=== PATIENT | female | born 1985 | race Caucasian/White ===

== ENCOUNTER 2016-11-22 11:42 | Emergency (ER) | payer BC ==
[2016-11-22 12:05] VITALS: BP 120/70; PULSE 78; TEMP 98.3; BMI 21.6
[2016-11-22] MEDS ORDERED: SODIUM CHLORIDE 1,000 ML IV STA (12:56)
--- NOTE | 2016-11-22 12:59 | PDOC ---
History of Present Illness - General Chief Complaint: Migraine Headache Stated Complaint: HEADACHE Time Seen by Provider: 11/22/16 12:20 History Source: Patient Exam Limitations: No Limitations - History of Present Illness Initial Comments: 11/22/16 12:56 31 yr female with headache for 3 weeks on and off. Pt denies fever or chills, pt also c/o feeling dehydrated and having seasonal allergies. Pt has no medical history or allergies to meds. LMP 3 weeks ago no control . non smoker denies drugs alcohol. Past History - Past Medical History Allergies/Adverse Reactions: Allergies Allergy/AdvReac Type Severity Reaction Status Date / Time No Known Allergies Allergy Verified 11/22/16 12:01 Home Medications: Ambulatory Orders Ketorolac Tromethamine [Toradol] 10 mg PO Q6H PRN #28 tablet 11/22/16 Other medical history: MIGRANES not dx - Psycho/Social/Smoking Cessation Hx Suicidal Ideation: No Smoking History: Never smoked Neuro Specific PMHX - Complaint Specific PMHX Glaucoma: No Herniated Disk: No Laminectomy: No Migraine: No Multiple Sclerosis: No Neuropathy: No TIA: No Review of Systems - Review of Systems Able to Perform ROS?: Yes Is the patient limited Yoruba proficient: No Constitutional: No: Symptoms Reported HEENTM: Yes: Nose Congestion Respiratory: No: Cough Cardiac (ROS): No: Symptoms Reported : No: Symptoms Reported Musculoskeletal: No: Symptoms Reported Integumentary: No: Symptoms Reported Neurological: Yes: Symptoms reported, Headache *Physical Exam - Vital Signs Last Vital Signs Temp Pulse Resp BP Pulse Ox 98.3 F 78 17 120/70 98 11/22/16 12:01 11/22/16 12:01 11/22/16 12:01 11/22/16 12:01 11/22/16 12:01 - Physical Exam General Appearance: Yes: Nourished, Appropriately Dressed HEENT: positive: EOMI, MAAME, Normal ENT Inspection, TMs Normal, Pharynx Normal, Nasal Congestion Neck: positive: Supple, Tender lateral (right muscle tender to palpation). negative: Tender Respiratory/Chest: positive: Lungs Clear, Normal Breath Sounds Cardiovascular: positive: Regular Rhythm, Regular Rate Musculoskeletal: positive: Normal Inspection Extremity: positive: Normal Capillary Refill, Normal Inspection, Normal Range of Motion Integumentary: positive: Normal Color, Dry, Warm Neurologic: positive: Fully Oriented, Alert, Normal Mood/Affect, Normal Response , Motor Strength 5/5, Finger to Nose (intact). negative: Sensory Deficit ED Treatment Course - LABORATORY CBC & Chemistry Diagram: 11/22/16 13:10 11/22/16 13:10 Medical Decision Making - Medical Decision Making 11/22/16 12:58 cc: headache on and off 3 weeks, feeling dehydrated, allergy symptoms will check labs, lyme IVF x 1 liter toradol if negative refer to neurology 11/22/16 12:59 11/22/16 13:58 11/22/16 14:36 pt feels better after IVF wants to go home labs are WNL will refer to neurology and ENT for further evaluation *DC/Admit/Observation/Transfer Diagnosis at time of Disposition: Headache Qualifiers: Headache type: unspecified Headache chronicity pattern: acute headache Intractability: not intractable Qualified Code(s): R51 - Headache - Discharge Dispostion Disposition: HOME Condition at time of disposition: Improved - Prescriptions Prescriptions: Ketorolac Tromethamine [Toradol] 10 mg PO Q6H PRN #28 tablet PRN Reason: Headache - Referrals Referrals: Dougie Begum MD [Staff Physician] - Greg Carrion MD [Staff Physician] - - Patient Instructions Additional Instructions: follow with the neurologist for follow up also follow with ENT allergy if any allergy symptoms, sinus symptoms re-occur you should take an over the counter non droswy antihistamine such as claritin, adarsh or zyrtec to help with any allergy symptoms take toradol as directed for headache avoid reading, texting straining your eyes if you have headache Return to ER for any worsening symptoms
[2016-11-22 13:26] LABS: BASOPHIL 0.6 % (0-2.0); EOSINOPHIL 1.1 % (0-4.5); MCH 28.1 pg (25.7-33.7); MCHC 33.4 g/dl (32.0-36.0); MEAN PLT VOLUME 8.2 fl (7.5-11.1); NEUTROPHILS 70.1 % (42.8-82.8); PLATELET COUNT 172 K/MM3 (134-434); RDW 14.2 % (11.6-15.6); WHITE BLOOD COUNT 10.4 K/mm3 (4.0-10.0)
[2016-11-22 13:53] LABS: ALBUMIN 4.3 g/dl (3.4-5.0); ALK PHOS 57 U/L (45-117); ANION GAP 10 (8-16); BILIRUBIN,TOTAL 0.4 mg/dL (0.2-1.0); CALCIUM 9.3 mg/dL (8.5-10.1); CO2 26 mmol/L (21-32); COCKROFT - GAULT 95.7185; CREATININE 0.8 mg/dL (0.55-1.02); GLUCOSE,RANDOM 87 mg/dL (74-106); SGOT/AST 18 U/L (15-37); SGPT/ALT 25 U/L (12-78); TOT PROT 8.3 g/dl (6.4-8.2)
[2016-11-22] MEDS ORDERED: KETOROLAC TROMETHAMINE 30 MG/1 ML VIAL IVPUSH STA (13:57)
[2016-11-22] MEDS ORDERED: KETOROLAC TROMETHAMINE 30 MG/1 ML VIAL ONE (14:01)
== END 2016-11-22 14:50 | disposition home or self-care (01) ==
LOC: JERFT 11:42
PROC: 3E0337Z Introduction of Electrolytic and Water Balance Substance into Peripheral Vein, Percutaneous Approach (ICD-10-PCS; principal; 2016-11-22)
PROC: 3E0233Z Introduction of Anti-inflammatory into Muscle, Percutaneous Approach (ICD-10-PCS; 2016-11-22)
DX: R51 Headache (principal); J30.2 Other seasonal allergic rhinitis
CPT/HCPCS: 36415; 80053; 84703; 85025; 86618; 99281-25

== ENCOUNTER 2017-11-10 08:23 | Emergency (ER) | payer BC ==
[2017-11-10 08:28] VITALS: BP 128/82; PULSE 81; TEMP 98; BMI 24.7
--- NOTE | 2017-11-10 08:54 | PDOC ---
History of Present Illness - General Chief Complaint: Back Pain Stated Complaint: BACK PAIN Time Seen by Provider: 11/10/17 08:52 History Source: Patient Exam Limitations: No Limitations Past History - Travel Traveled outside of the country in the last 30 days: No Close contact w/someone who was outside of country & ill: No - Past Medical History Allergies/Adverse Reactions: Allergies Allergy/AdvReac Type Severity Reaction Status Date / Time No Known Allergies Allergy Verified 11/10/17 08:28 Home Medications: Ambulatory Orders Methylprednisolone [Medrol Dose Juan] 4 mg PO ASDIR #21 tablet 11/10/17 COPD: No Other medical history: Migraines, Pituitary tumor - Suicide/Smoking/Psychosocial Hx Smoking History: Never smoked Have you smoked in the past 12 months: No Information on smoking cessation initiated: No Hx Alcohol Use: No Drug/Substance Use Hx: No Substance Use Type: None Review of Systems - Review of Systems Able to Perform ROS?: Yes Comments:: 11/10/17 08:54 CONSTITUTIONAL: Absent: fever, chills, diaphoresis, generalized weakness, malaise, loss of appetite HEENT: Absent: rhinorrhea, nasal congestion, throat pain, throat swelling, difficulty swallowing, mouth swelling, ear pain, eye pain, visual Changes CARDIOVASCULAR: Absent: chest pain, loss of consciousness, palpitations, irregular heart rate, peripheral edema RESPIRATORY: Absent: cough, shortness of breath, dyspnea with exertion, orthopnea, wheezing, stridor, hemoptysis GASTROINTESTINAL: Absent: abdominal pain, abdominal distension, nausea, vomiting, diarrhea, constipation, melena, hematochezia GENITOURINARY: Absent: dysuria, frequency, urgency, hesitancy, hematuria, flank pain, genital pain MUSCULOSKELETAL: Absent: myalgia, arthralgia, joint swelling SKIN: Absent: rash, itching, pallor HEMATOLOGIC/IMMUNOLOGIC: Absent: easy bleeding, easy bruising, lymphadenopathy, frequent infections ENDOCRINE: Absent: unexplained weight gain, unexplained weight loss, heat intolerance, cold intolerance NEUROLOGIC: Absent: headache, focal weakness or paresthesias, dizziness, unsteady gait, seizure, mental status changes, bladder or bowel incontinence PSYCHIATRIC: Absent: anxiety, depression, suicidal or homicidal ideation, hallucinations. Is the patient limited Yi proficient: No *Physical Exam - Vital Signs Last Vital Signs Temp Pulse Resp BP Pulse Ox 98 F 81 18 128/82 98 11/10/17 08:25 11/10/17 08:25 11/10/17 08:25 11/10/17 08:25 11/10/17 08:25 - Physical Exam Comments: 11/10/17 08:54 GENERAL: Well developed, well nourished. Awake and alert. No acute distress. HEENT: Normocephalic, atraumatic. PERRLA, EOMI. No conjunctival pallor. Sclera are non- icteric. Moist mucous membranes. Oropharynx is clear. NECK: Supple. Full ROM. No JVD. Carotid pulses 2+ and symmetric, without bruits. No thyromegaly. No lymphadenopathy. CARDIOVASCULAR: Regular rate and rhythm. No murmurs, rubs, or gallops. Distal pulses are 2+ and symmetric. PULMONARY: No evidence of respiratory distress. Lungs clear to auscultation bilaterally. No wheezing, rales or rhonchi. ABDOMINAL: Soft. Non-tender. Non-distended. No rebound or guarding. No organomegaly. Normoactive bowel sounds. MUSCULOSKELETAL Normal range of motion at all joints. No bony deformities or tenderness. No CVA tenderness. EXTREMITIES: No cyanosis. No clubbing. No edema. No calf tenderness. SKIN: Warm and dry. Normal capillary refill. No rashes. No jaundice. NEUROLOGICAL: Alert, awake, appropriate. Cranial nerves 2-12 intact. No deficits to light touch and temperature in face, upper extremities and lower extremities. No motor deficits in the in face, upper extremities and lower extremities. Normoreflexic in the upper and lower extremities. Normal speech. Toes are down- going bilaterally. Gait is normal without ataxia. PSYCHIATRIC: Cooperative. Good eye contact. Appropriate mood and affect. *DC/Admit/Observation/Transfer Diagnosis at time of Disposition: Upper back pain on left side - Discharge Dispostion Disposition: HOME Condition at time of disposition: Stable Admit: No - Referrals - Patient Instructions Printed Discharge Instructions: DI for Thoracic Back Pain Additional Instructions: You have upper back pain due to a muscle spasm. Please take the steroids as directed. Then, please take ibuprofen 800 mg 3 times a day not to exceed 3000 mg a day. You may use warm compresses, or creams on your back to help with your symptoms. Use gentle stretching exercises and core strengthening exercises once your pain has subsided to help prevent future back pain. Please follow-up with your primary care doctor. If your symptoms do not resolve in 3-5 days, follow- up with orthopedics. A referral has been provided for you. Return to the emergency department if you have worsening back pain, bladder or bowel incontinence, numbness and tingling in her legs, changes in the way you walk, arm pain, or any new or worsening symptoms. - Post Discharge Activity Forms/Work/School Notes: Back to Work
[2017-11-10] MEDS ORDERED: KETOROLAC TROMETHAMINE 60 MG/2 ML VIAL ONE (09:19)
[2017-11-10] MEDS ORDERED: KETOROLAC TROMETHAMINE 60 MG/2 ML VIAL IM ONE (09:19)
== END 2017-11-10 09:26 | disposition home or self-care (01) ==
LOC: JERFT 08:23
PROC: 3E0233Z Introduction of Anti-inflammatory into Muscle, Percutaneous Approach (ICD-10-PCS; principal; 2017-11-10)
DX: M62.830 Muscle spasm of back (principal)
CPT/HCPCS: 99281-25

== ENCOUNTER 2017-12-17 10:15 | Emergency (ER) | payer BC, OTHER ==
[2017-12-17 10:24] VITALS: BMI 26.6
--- NOTE | 2017-12-17 10:32 | PDOC ---
History of Present Illness - General Chief Complaint: Nausea/Vomiting Stated Complaint: NAUSEA/VOMITING (6 WKS ) Time Seen by Provider: 12/17/17 10:32 - History of Present Illness Initial Comments: 12/17/17 10:39 Ms. Ward is a 32 yo female at 6 weeks gestation (confirmed IUP) w/ no significant pmh who presents for evaluation of nausea/vomiting/weakness for several days. She reports she has been unable to keep anything down today and presents for evaluation. The patient denies chest pain, shortness of breath, headache and dizziness. Denies fever, chills, diarrhea and constipation. Denies dysuria, frequency, urgency and hematuria. Allergies: NKDA RET[facility] PRICING COORDINATOR: Dr. Luciano Past History - Past Medical History Allergies/Adverse Reactions: Allergies Allergy/AdvReac Type Severity Reaction Status Date / Time No Known Allergies Allergy Verified 12/17/17 10:20 Home Medications: Ambulatory Orders Nitrofurantoin Monohyd/M-Cryst [Macrobid -] 100 mg PO BID #10 capsule 12/17/17 Ondansetron [Zofran Odt -] 4 mg SL BID #14 od.tablet 12/17/17 No122/Iron/Folic Acid [ Multi Tablet] 1 each PO DAILY 12/17/17 COPD: No Other medical history: PITUITARY TUMOR, SCIATICA PAIN - Immunization History Immunization Up to Date: Yes - Suicide/Smoking/Psychosocial Hx Smoking History: Never smoked Have you smoked in the past 12 months: No Hx Alcohol Use: No Drug/Substance Use Hx: No Substance Use Type: None Review of Systems - Review of Systems Comments:: 12/17/17 10:46 GENERAL/CONSTITUTIONAL: No fever or chills. No weakness. HEAD, EYES, EARS, NOSE AND THROAT: No change in vision. No ear pain or discharge. No sore throat. CARDIOVASCULAR: No chest pain or shortness of breath RESPIRATORY: No cough, wheezing, or hemoptysis. GASTROINTESTINAL: +N/V as described. No diarrhea or constipation. GENITOURINARY: No dysuria, frequency, or change in urination. MUSCULOSKELETAL: No joint or muscle swelling or pain. No neck or back pain. SKIN: No rash NEUROLOGIC: No headache, vertigo, loss of consciousness, or change in strength/ sensation. ENDOCRINE: No increased thirst. No abnormal weight change HEMATOLOGIC/LYMPHATIC: No anemia, easy bleeding, or history of blood clots. ALLERGIC/IMMUNOLOGIC: No hives or skin allergy. *Physical Exam - Vital Signs Last Vital Signs Temp Pulse Resp BP Pulse Ox 98.6 F 72 18 120/66 98 12/17/17 10:21 12/17/17 10:21 12/17/17 10:21 12/17/17 10:21 12/17/17 10:21 - Physical Exam Comments: 12/17/17 10:46 GENERAL: +Patient appears weak. Otherwise awake, alert, and fully oriented, in no acute distress HEAD: No signs of trauma, normocephalic, atraumatic EYES: PERRLA, EOMI, sclera anicteric, conjunctiva clear ENT: Auricles normal inspection, hearing grossly normal, nares patent, oropharynx clear without exudates. Moist mucosa NECK: Normal ROM, supple, no lymphadenopathy, JVD, or masses LUNGS: No distress, speaks full sentences, clear to auscultation bilaterally HEART: Regular rate and rhythm, normal S1 and S2, no murmurs, rubs or gallops, peripheral pulses normal and equal bilaterally. ABDOMEN: Soft, nontender, normoactive bowel sounds. No guarding, no rebound. No masses EXTREMITIES: Normal inspection, Normal range of motion, no edema. No clubbing or cyanosis. NEUROLOGICAL: Cranial nerves II through XII grossly intact. Normal speech, normal gait, no focal sensorimotor deficits SKIN: Warm, Dry, normal turgor, no rashes or lesions noted. 12/17/17 10:46 ED Treatment Course - LABORATORY CBC & Chemistry Diagram: 12/17/17 10:52 12/17/17 10:52 Medical Decision Making - Medical Decision Making 12/17/17 10:47 Ms. Ward is a 32 yo female w/ no significant pmh who presents w/ symptoms concerning for hyperemesis gravidarum. Labs sent for evaluation of acute process , will provide symptomatic relief with zofran/fluids. 12/17/17 13:35 Transvaginal US revealed 6w 4d IUP. Likely ruptured left ovarian corpus luteum cyst noted. Also free fluid noted in right adnexa. Patient noted to have mild UTI as below. Macrobid given for treatment of asymptomatic UTI in . Patient now able to tolerate PO successfully. Patient will follow-up with OB/ [facility] on Tuesday for further evaluation. Laboratory Results - last 24 hr 12/17/17 12/17/17 12/17/17 10:52 10:52 11:26 WBC 8.4 RBC 4.49 Hgb 12.8 Hct 37.7 MCV 84.0 MCH 28.5 MCHC 33.9 RDW 14.0 Plt Count 186 MPV 7.6 Neutrophils % 72.1 D Lymphocytes % 19.3 D Monocytes % 6.4 Eosinophils % 1.5 Basophils % 0.7 Nucleated RBC % 0 Sodium 137 Potassium 4.3 Chloride 103 Carbon Dioxide 26 Anion Gap 8 BUN 8 Creatinine 0.8 Creat Clearance w eGFR > 60 Random Glucose 82 Calcium 8.5 Total Bilirubin 0.4 D AST 15 ALT 16 Alkaline Phosphatase 50 Total Protein 7.5 Albumin 3.5 Beta HCG, Quant 40831.2 Urine Color Straw Urine Appearance Clear Urine pH 7.0 Ur Specific Val[place] 1.009 Urine Protein Negative Urine Glucose (UA) Negative Urine Ketones Negative Urine Blood Negative Urine Nitrite Negative Urine Bilirubin Negative Urine Urobilinogen Negative Ur Leukocyte Esterase 2+ H Urine WBC (Auto) 1 Urine RBC (Auto) 1 Ur Epithelial Cells Rare *DC/Admit/Observation/Transfer Diagnosis at time of Disposition: Nausea and vomiting during - Discharge Dispostion Disposition: HOME - Prescriptions Prescriptions: Nitrofurantoin Monohyd/M-Cryst [Macrobid -] 100 mg PO BID #10 capsule Ondansetron [Zofran Odt -] 4 mg SL BID #14 od.tablet - Referrals Referrals: Jf Castro MD [Primary Care Provider] - - Patient Instructions Printed Discharge Instructions: DI for Hyperemesis Gravidarum Additional Instructions: Please return to ER if any increased nausea, vomiting, pain, fever, chills, or other concerning symptoms. Follow-up with RET[facility] PRICING COORDINATOR as discussed on Tuesday for further evaluation. Take all medications as described. - Post Discharge Activity
[2017-12-17] MEDS ORDERED: SODIUM CHLORIDE 1,000 ML IV STA (10:42)
[2017-12-17] MEDS ORDERED: ONDANSETRON 4 MG/2 ML VIAL IVPUSH ONE ×2 (10:42→10:46)
[2017-12-17] MEDS ORDERED: ONDANSETRON 4 MG/2 ML VIAL ONE (10:44)
--- NOTE | 2017-12-17 10:47 | PDOC ---
Attending Attestation - HPI HPI: 12/17/17 11:18 The patient is a 32 year old female who is 6 weeks with a significant PMH of migraines, pituitary tumor, and sciatica who presents to the emergency department with nausea and vomiting beginning within the past 1.5 weeks. The patient states she has been persistently vomiting since 5AM this morning and has had multiple episodes of vomiting and intermittent headache since about 12/05/17. The patient notes she has a follow up appointment with Dr. Luciano this upcoming Tuesday. The patient reports taking Tylenol today for her migraines. The patient denies any vaginal bleeding or discharge, She denies spotting or cramping. She denies chest pain or shortness of breath, She denies fevers or chills. Allergies: NKA PCP: Dr. Jf Castro - Physicial Exam PE: 12/17/17 11:18 Vitals: Triage Vital signs reviewed General Appearance: no acute distress, well nourished well developed, Neck: Supple;No Nuchal rigidity Cardiac: Regular rate and rhythm, no murmurs, no rubs, no gallops, Lungs: Clear to auscultation bilateral, good air movement bilaterally, Abdomen: Soft, nondistended, normal bowel sounds, nontender to palpation Extremities: Full range of motion to all extremities, no cyanosis, clubbing, or edema Skin: Warm and dry, no rashes or lesions, no petechiae Neuro: AOX3; Cranial Nerves 2-12 grossly intact, Strength intact to all extremities, Sensation intact to all extremities Psych: normal mood, normal affect - Medical Decision Making 12/17/17 11:30 The patient is a 32 year old female who is 6 weeks with a significant PMH of migraines, pituitary tumor, and sciatica who presents to the emergency department with nausea and vomiting beginning within the past 1.5 weeks. The patient states she has been persistently vomiting since 5AM this morning and has had multiple episodes of vomiting and intermittent headache since about 12/05/17. The patient notes she has a follow up appointment with Dr. Luciano this upcoming Tuesday. The patient reports taking Tylenol today for her migraines. The patient denies any vaginal bleeding or discharge, She denies spotting or cramping. She denies chest pain or shortness of breath, She denies fevers or chills. Allergies: NKA PCP: Dr. Jf Castro <Remy Borges - Last Filed: 12/17/17 12:22> - Resident Resident Name: Bob Yoon - ED Attending Attestation I have performed the following: I have examined & evaluated the patient, The case was reviewed & discussed with the resident, I agree w/resident's findings & plan, Exceptions are as noted - Medical Decision Making History examination consistent with hyperemesis gravidarum. Status post Reglan IV fluids and Zofran patient feels much better now feeling better. 1 WBC on UA. We'll start on Macrobid we'll follow culture tomorrow if negative will discontinue Patient was follow-up with her [facility] this week Findings, need follow-up and strict return instructions discussed patient. <Peter Mae - Last Filed: 12/17/17 18:20>
[2017-12-17 11:04] LABS: BASO % 0.7 % (0-2.0); EOS % 1.5 % (0-4.5); HEMATOCRIT 37.7 % (32.4-45.2); HEMOGLOBIN 12.8 GM/dL (10.7-15.3); LYMPH % 19.3 % (8-40); MCH 28.5 pg (25.7-33.7); MCHC 33.9 g/dl (32.0-36.0); MEAN PLT VOLUME 7.6 fl (7.5-11.1); MONO % 6.4 % (3.8-10.2); NEUT % 72.1 % (42.8-82.8); PLATELET COUNT 186 K/MM3 (134-434); RBC 4.49 M/mm3 (3.60-5.2); WHITE BLOOD COUNT 8.4 K/mm3 (4.0-10.0)
[2017-12-17] MEDS ORDERED: METOCLOPRAMIDE HCL INJECTION 10 MG/2 ML VIAL IVPB ONE (11:12)
[2017-12-17] MEDS ORDERED: SODIUM CHLORIDE 0.9% 1000 ML INFUS.BAG IV ONE (11:13)
[2017-12-17] MEDS ORDERED: METOCLOPRAMIDE HCL INJECTION 10 MG/2 ML VIAL ONE (11:17)
[2017-12-17 11:36] LABS: ALBUMIN 3.5 g/dl (3.4-5.0); ANION GAP 8 (8-16); BILIRUBIN,TOTAL 0.4 mg/dL (0.2-1.0); BLOOD UREA NITROGEN 8 mg/dL (7-18); CALCIUM 8.5 mg/dL (8.5-10.1); CHLORIDE 103 mmol/L (98-107); CO2 26 mmol/L (21-32); CREATININE 0.8 mg/dL (0.55-1.02); GLUCOSE,RANDOM 82 mg/dL (74-106); POTASSIUM 4.3 mmol/L (3.5-5.1); SGOT/AST 15 U/L (15-37); SGPT/ALT 16 U/L (12-78); SODIUM 137 mmol/L (136-145); TOT PROT 7.5 g/dl (6.4-8.2)
[2017-12-17 11:47] LABS: URINE APPEARANCE CLEAR; URINE BILIRUBIN NEGATIVE (<2.0 mg/dL); URINE COLOR STRAW; URINE GLUCOSE (UA) NEGATIVE (NEGATIVE); URINE KETONE NEGATIVE (NEGATIVE); URINE NITRITE NEGATIVE (NEGATIVE); URINE PROTEIN NEGATIVE (NEGATIVE); URINE UROBILINOGEN NEGATIVE mg/dL (0.2-1.0)
[2017-12-17 11:51] LABS: ALK PHOS 50 U/L (45-117)
[2017-12-17 12:02] LABS: URINE LEUK ESTERASE 2+ (NEGATIVE)
[2017-12-17 12:13] LABS: EPI CELLS RARE /HPF (FEW)
[2017-12-17 13:54] VITALS: BP 105/60; PULSE 71; TEMP 98.7
== END 2017-12-17 14:15 | disposition home or self-care (01) ==
LOC: JER 10:15
PROC: 3E033GC Introduction of Other Therapeutic Substance into Peripheral Vein, Percutaneous Approach (ICD-10-PCS; principal; 2017-12-17)
PROC: 3E033GC Introduction of Other Therapeutic Substance into Peripheral Vein, Percutaneous Approach (ICD-10-PCS; 2017-12-17)
PROC: 3E033GC Introduction of Other Therapeutic Substance into Peripheral Vein, Percutaneous Approach (ICD-10-PCS; 2017-12-17)
DX: O26.891 Other specified pregnancy related conditions, first trimester (principal); O21.0 Mild hyperemesis gravidarum; O23.31 Infections of other parts of urinary tract in pregnancy, first trimester; O34.81 Maternal care for other abnormalities of pelvic organs, first trimester; N83.292 Other ovarian cyst, left side; Z3A.01 Less than 8 weeks gestation of pregnancy
CPT/HCPCS: 76830-TC; 80053; 81003; 81015; 84702; 85025; 87086; 99282-25; J7030

== ENCOUNTER 2017-12-30 05:57 | Emergency (ER) | payer BC, OTHER ==
[2017-12-30 06:53] VITALS: BMI 25.0
[2017-12-30] MEDS ORDERED: SODIUM CHLORIDE 0.9% 500 ML INFUS.BAG IV ONE (07:12)
--- NOTE | 2017-12-30 07:17 | PDOC ---
Attending Attestation - ED Attending Attestation I have performed the following: I have examined & evaluated the patient, The case was reviewed & discussed with the resident, I agree w/resident's findings & plan, Exceptions are as noted - HPI HPI: 12/30/17 07:50 The patient is a 32 year old female with a significant past medical history of pituitary tumor, diet-controlled diabetes, migraines, and sciatica who presents to the emergency department for evaluation of emesis today. The patient reports multiple episodes of nausea with associated NBNB emesis since yesterday. The patient states this is her second issue regarding nausea and emesis during this (currently 8 weeks). She reports being seen during 5.5 weeks of her for similar symptoms. The patient reports associated symptoms of mild abdominal cramps (typical of her ), generalized weakness, and dyspnea on exertion. She reports only having a small amount almonds and juice yesterday secondary to her nausea. The patient reports she is taking medication (unsure of name) prescribed by her COLD ROLLER (Dr. Luciano). The patient denies chest pain, shortness of breath, headache, and dizziness. Denies fevers, chills, diarrhea, and constipation. Allergies: NKDA Social history: No reported cigarette, alcohol, or drug use. COLD ROLLER: Dr. Luciano <Vinayak Booker - Last Filed: 12/30/17 07:49> - Resident Resident Name: Saige Merino - ED Attending Attestation I have performed the following: I have examined & evaluated the patient, The case was reviewed & discussed with the resident, I agree w/resident's findings & plan, Exceptions are as noted - Physicial Exam PE: GENERAL: Awake, alert, and fully oriented, in no acute distress HEAD: No signs of trauma EYES: PERRLA, EOMI, sclera anicteric, conjunctiva clear ENT: Auricles normal inspection, hearing grossly normal, nares patent, oropharynx clear without exudates. Dry mucosa NECK: Normal ROM, supple, no lymphadenopathy, JVD, or masses LUNGS: Breath sounds equal, clear to auscultation bilaterally. No wheezes, and no crackles HEART: Regular rate and rhythm, normal S1 and S2, no murmurs, rubs or gallops ABDOMEN: Soft, mild suprapubic tenderness, normoactive bowel sounds. No guarding, no rebound. No masses EXTREMITIES: Normal range of motion, no edema. No clubbing or cyanosis. No cords, erythema, or tenderness NEUROLOGICAL: Cranial nerves II through XII grossly intact. Normal speech, normal gait SKIN: Warm, Dry, normal turgor, no rashes or lesions noted. - Medical Decision Making Pt with nausea and vomiting, currently 8 WGA. +Minimal suprapubic tenderness. Will obtain labs, UA, and ultrasound. <Jesenia Toribio - Last Filed: 12/30/17 08:49> Attestations - Attestations Documentation prepared by Vinayak Booker, acting as medical assistant secretary for Jesenia Toribio MD. <Vinayak Booker - Last Filed: 12/30/17 07:49>
[2017-12-30] MEDS ORDERED: METOCLOPRAMIDE HCL INJECTION 10 MG/2 ML VIAL IVPUSH ONE (07:20)
[2017-12-30] MEDS ORDERED: METOCLOPRAMIDE HCL INJECTION 10 MG/2 ML VIAL ONE (07:36)
--- NOTE | 2017-12-30 07:42 | PDOC ---
History of Present Illness - General Chief Complaint: Nausea/Vomiting Stated Complaint: VOMITING,8 WKS Time Seen by Provider: 12/30/17 06:57 History Source: Patient Exam Limitations: No Limitations - History of Present Illness Initial Comments: This is a 32 YO (one live vaginal delivery, currently 6 wks 4 days by LMP but ~ 8 wks by US, follows with Dr. Luciano with last appointment 12/08/17) with h/o diet-controlled GDM prior , anemia complicating prior without transfusion, pituitary tumor dx one year ago, migraines, chronic back pain with sciatica, and corticosteroid injections for this back pain, who p/w nausea and many episodes of NBNB vomiting for the past two days similar to her prior symptoms which have been diagnosed as hyperemesis gravidarum. She has been unable to keep down most foods or liquids. She was seen here in the ED in mid-October for this n/v and was found to be at that time by [facility]. She also had a UTI at that time and was tx with Macrobid. She has been taking an antiemetic at home as prescribed by Dr. Rivera without relief. She has had mild lower abdominal cramping unchanged from her weeks-long baseline this , as well as unchanged baseline SALGUERO this . She denies fever, chills, diarrhea, constipation, new abdominal pain, new back pain, vaginal bleeding/discharge, dysuria, urinary frequency or abnormal colors/smells. Past History - Past Medical History Allergies/Adverse Reactions: Allergies Allergy/AdvReac Type Severity Reaction Status Date / Time No Known Allergies Allergy Verified 12/30/17 06:52 Home Medications: Ambulatory Orders Nitrofurantoin Monohyd/M-Cryst [Macrobid -] 100 mg PO BID #10 capsule 12/17/17 Ondansetron [Zofran Odt -] 4 mg SL BID #14 od.tablet 12/17/17 No122/Iron/Folic Acid [ Multi Tablet] 1 each PO DAILY 12/17/17 COPD: No - Reproductive History Is Patient Now?: Yes - Immunization History Immunization Up to Date: Yes - Suicide/Smoking/Psychosocial Hx Smoking History: Never smoked Have you smoked in the past 12 months: No Information on smoking cessation initiated: No Hx Alcohol Use: No Drug/Substance Use Hx: No Substance Use Type: None Review of Systems - Review of Systems Able to Perform ROS?: Yes Constitutional: No: Chills, Fever, Unexplained wgt Loss HEENTM: No: Nose Congestion, Throat Pain Respiratory: Yes: SOB with Exertion. No: Cough Cardiac (ROS): No: Chest Pain, Palpitations ABD/GI: Yes: Nausea, Vomiting. No: Constipated, Diarrhea : No: Burning, Dysuria Musculoskeletal: No: Back Pain, Neck Pain Integumentary: No: Bruising, Rash Neurological: No: Headache, Numbness, Tingling, Weakness, Dizziness Endocrine: No: Unexplained Weight Gain, Unexplained Weight Loss *Physical Exam - Vital Signs Last Vital Signs Temp Pulse Resp BP Pulse Ox 98.6 F 74 16 111/70 100 12/30/17 06:38 12/30/17 06:38 12/30/17 06:38 12/30/17 06:38 12/30/17 06:38 - Physical Exam General Appearance: Yes: Nourished, Appropriately Dressed, Other (nontoxic and well appearing adult female who is conversive and answering questions appropriately). No: Apparent Distress HEENT: positive: EOMI, Normal Voice, Hearing Grossly Normal. negative: Scleral Icterus (R), Scleral Icterus (L), Nasal Congestion Neck: positive: Trachea midline, Supple. negative: Tender, Rigid Respiratory/Chest: positive: Lungs Clear, Normal Breath Sounds. negative: Respiratory Distress, Crackles, Rhonchi, Stridor, Wheezing Cardiovascular: positive: Regular Rhythm, Regular Rate, S1, S2. negative: Edema , JVD, Murmur Gastrointestinal/Abdominal: positive: Normal Bowel Sounds, Soft. negative: Tender, Organomegaly, Pulsatile Mass, Guarding Musculoskeletal: positive: Normal Inspection. negative: Decreased Range of Motion, Vertebral Tenderness Extremity: positive: Normal Capillary Refill, Normal Inspection, Normal Range of Motion. negative: Tender, Cyanosis Integumentary: positive: Normal Color, Dry, Warm. negative: Erythema, Pale, Rash, Bruising Neurologic: positive: tool analyst II-XII NML intact (grossly), Fully Oriented, Alert, Normal Mood/Affect, Normal Response, Motor Strength 5/5 ED Treatment Course - Medications Given in the ED: ED Medications Discontinued Medications Generic Name Dose Route Start Last Admin Trade Name Freq PRN Reason Stop Dose Admin Sodium Chloride 1,000 ml 12/30/17 07:12 12/30/17 07:25 Normal Saline - IV 12/30/17 07:13 1,000 ml ONCE ONE Administration Medical Decision Making - Medical Decision Making adult female patient p/w n/v. Initial Vital Signs Temp Pulse Resp BP Pulse Ox 98.6 F 74 16 111/70 100 12/30/17 06:38 12/30/17 06:38 12/30/17 06:38 12/30/17 06:38 12/30/17 06:38 Exam: nontoxic and well appearing, no active vomiting, no abdominal ttp, exam benign DDX IBNLT: hyperemesis gravidarum, viral syndrome, gastritis, UTI, PNA/ bronchitis, other infection, also c/f electrolyte derangement and dehydration. Bedside US notable for IUP with FHR around 160. W/U ordered: hCG, TV[facility] [place] ordered: IVF, Reglan, Benadryl Laboratory Tests 12/30/17 12/30/17 07:49 07:50 Beta HCG, Quant [id number] Urine Color Yellow Urine Appearance Slcloudy Urine pH 6.0 Ur Specific Ramona 1.025 Urine Protein Negative Urine Glucose (UA) Negative Urine Ketones 1+ H Urine Blood 1+ H Urine Nitrite Negative Urine Bilirubin Negative Urine Urobilinogen Negative Ur Leukocyte Esterase Trace Urine WBC (Auto) 5 Urine RBC (Auto) 3 Ur Epithelial Cells Few Urine Mucus Rare hCG level typical of 6-8 wk . TVUS: IUP, FHR 174 Vital Signs Temperature 98.6 F 12/30/17 06:38 Pulse Rate 71 12/30/17 10:49 Respiratory Rate 17 12/30/17 10:49 Blood Pressure 109/67 12/30/17 10:49 O2 Sat by Pulse Oximetry (%) 100 12/30/17 10:49 Reassessment: Patient states wants to go home, no more nausea, hungry and wants to eat, given sandwich, repeat exam benign. The Pt has gotten significant relief of symptoms with ED medications. Workup is not concerning for emergency-level pathology at this time. The Pt is appropriate for discharge with close outpatient follow up. They are comfortable with this plan and will follow up with their [facility] in 1-3 days. Specific return precautions are discussed and they will come back to the ER if necessary. *DC/Admit/Observation/Transfer Diagnosis at time of Disposition: Hyperemesis gravidarum - Discharge Dispostion Disposition: HOME Condition at time of disposition: Stable Decision to Admit order: No - Referrals - Patient Instructions Printed Discharge Instructions: DI for Hyperemesis Gravidarum Additional Instructions: You were seen in the ER for nausea and vomiting during . We gave you IV fluids and medications, and checked your hormone levels and an ultrasound. Everything appears normal and your symptoms improved while in the ER. After our assessment, we do not believe you are having a medical emergency at this time, and we believe you are safe to go home. Please follow up with your regular PCP and/or [facility] doctor in 1-3 days. Call their clinic as soon as possible, tell them you were seen in the ER, and tell them you need an appointment. If you have any new or worsening symptoms, especially severe pain, vomiting blood, inability to keep down liquids, SOB, chest pain, or other symptoms, please come back to the ER at any time (24 hours a day). If you are having severe or life threatening symptoms, or symptoms that make it unsafe to drive or have someone drive you, please call 911. - Post Discharge Activity
[2017-12-30 08:19] LABS: URINE APPEARANCE SLCLOUDY; URINE BILIRUBIN NEGATIVE (<2.0 mg/dL); URINE BLOOD 1+ (NEGATIVE); URINE COLOR YELLOW; URINE GLUCOSE (UA) NEGATIVE (NEGATIVE); URINE KETONE 1+ (NEGATIVE); URINE LEUK ESTERASE TRACE (NEGATIVE); URINE NITRITE NEGATIVE (NEGATIVE); URINE PROTEIN NEGATIVE (NEGATIVE); URINE UROBILINOGEN NEGATIVE mg/dL (0.2-1.0)
[2017-12-30 08:31] LABS: EPI CELLS FEW /HPF (FEW); URINE MUCUS RARE
[2017-12-30 10:49] VITALS: BP 109/67; PULSE 71
[2017-12-30 11:15] VITALS: TEMP 98
== END 2017-12-30 11:15 | disposition home or self-care (01) ==
LOC: JER 05:57
PROC: 3E033GC Introduction of Other Therapeutic Substance into Peripheral Vein, Percutaneous Approach (ICD-10-PCS; principal; 2017-12-30)
PROC: 3E0337Z Introduction of Electrolytic and Water Balance Substance into Peripheral Vein, Percutaneous Approach (ICD-10-PCS; 2017-12-30)
DX: O26.891 Other specified pregnancy related conditions, first trimester (principal); O21.0 Mild hyperemesis gravidarum; Z3A.08 8 weeks gestation of pregnancy
CPT/HCPCS: 36415; 76815; 81003; 81015; 84702; 87086; 99283-25

== ENCOUNTER 2022-04-19 08:11 | Emergency (ER) | payer BC, OTHER ==
[2022-04-19 08:16] VITALS: BP 117/76; PULSE 82; RESP 18; TEMP 98.4; BMI 28.1
[2022-04-19] MEDS ORDERED: ACETAMINOPHEN 500 MG TABLET (FP) PO ONE (08:47)
[2022-04-19] MEDS ORDERED: KETOROLAC TROMETHAMINE 30 MG/1 ML VIAL IM ONE (08:47)
[2022-04-19] MEDS ORDERED: LIDOCAINE 5% TOPICAL PATCH TP ONE (08:47)
[2022-04-19] MEDS ORDERED: KETOROLAC TROMETHAMINE 30 MG/1 ML VIAL ONE (08:52)
[2022-04-19] MEDS ORDERED: LIDOCAINE 5% TOPICAL PATCH ONE (08:52)
[2022-04-19] MEDS ORDERED: ACETAMINOPHEN 500 MG TABLET (FP) ONE (08:54)
[2022-04-19] MEDS ORDERED: METHOCARBAMOL 500 MG TABLET PO ONE (08:58)
[2022-04-19] MEDS ORDERED: METHOCARBAMOL 500 MG TABLET ONE (09:14)
[2022-04-19] MEDS ORDERED: LIDOCAINE PATCH REMOVAL MC SCH (22:00)
== END 2022-04-19 09:27 | disposition home or self-care (01) ==
LOC: JER 08:11
PROC: 3E0233Z Introduction of Anti-inflammatory into Muscle, Percutaneous Approach (ICD-10-PCS; principal; 2022-04-19)
DX: M54.50 Low back pain, unspecified (principal)
CPT/HCPCS: 99284-25

== ENCOUNTER 2022-06-20 21:40 | Emergency (ER) | payer BC, OTHER ==
[2022-06-20 22:16] VITALS: BP 111/74; PULSE 71; RESP 22; TEMP 97.5; BMI 27.4
[2022-06-21] MEDS ORDERED: FAMOTIDINE 10 MG TABLET PO ONE (00:34)
[2022-06-21] MEDS ORDERED: SUCRALFATE 1 GM TABLET (FP) PO ONE (00:34)
[2022-06-21] MEDS ORDERED: MAG HYDROX/AL HYDROX/SIMETH 30 ML UNIT-DOSE CUP PO ONE (00:34)
[2022-06-21] MEDS ORDERED: SUCRALFATE 1 GM TABLET (FP) ONE (01:10)
[2022-06-21] MEDS ORDERED: FAMOTIDINE 20 MG TABLET ONE (01:10)
[2022-06-21] MEDS ORDERED: MAG HYDROX/AL HYDROX/SIMETH 30 ML UNIT-DOSE CUP ONE (01:10)
== END 2022-06-21 01:37 | disposition home or self-care (01) ==
LOC: JER 21:40
DX: R07.89 Other chest pain (principal); K29.70 Gastritis, unspecified, without bleeding
CPT/HCPCS: 0241U-QW; 93005; 93010; 99283-25

== ENCOUNTER 2022-08-05 08:02 | Emergency (ER) | payer BC, OTHER ==
[2022-08-05 08:17] VITALS: BP 112/77; PULSE 76; RESP 18; TEMP 97.7; BMI 27.4
[2022-08-05] MEDS ORDERED: IBUPROFEN 400 MG TABLET (FP) PO ONE (09:45)
[2022-08-05] MEDS ORDERED: IBUPROFEN 600 MG TABLET (FP) PO ONE (09:45)
== END 2022-08-05 10:40 | disposition home or self-care (01) ==
LOC: JERFT 08:02 → JER 08:02 → JERFT 10:40
DX: S93.492A Sprain of other ligament of left ankle, initial encounter (principal); W10.9XXA Fall (on) (from) unspecified stairs and steps, initial encounter; X50.0XXA Overexertion from strenuous movement or load, initial encounter
CPT/HCPCS: 73610-TC-LT-FY; 73630-TC-LT; 99283-25